=== PATIENT | female | born 2000 | race Caucasian/White ===

== ENCOUNTER 2024-06-15 09:42 | Inpatient (IN) ==
[2024-06-15 10:15] LABS: Basophils # (auto) 0.04 K/uL (0.00-0.20); Basophils % (auto) 0.6 %; Eosinophils # (auto) 0.16 K/uL (0.00-0.50); Eosinophils % (auto) 2.4 %; Hematocrit (blood only) 50.1 % (37.0-47.0); Hemoglobin 16.4 g/dl (12.0-16.0); Immature Granulocytes # (auto) 0.01 K/uL (0.01-0.20); Immature Granulocytes % (auto) 0.2 %; Lymphocytes # (auto) 1.72 K/uL (1.20-3.40); Lymphocytes % (auto) 25.9 %; Mean Corpuscular Hemoglobin 28.4 pg (25.0-34.0); Mean Corpuscular Hgb Conc 32.7 g/dL (32.0-36.0); Mean Corpuscular Volume 86.8 fL (80.0-100.0); Mean Platelet Volume 9.7 fL (9.4-12.4); Monocytes # (auto) 0.62 K/uL (0.11-0.59); Monocytes % (auto) 9.4 %; Neutrophils # (auto) 4.08 K/uL (1.40-6.50); Neutrophils % (auto) 61.5 %; Platelet Count 234 K/uL (130-400); RDW Coefficient of Variation 13.1 % (11.5-14.5); RDW Standard Deviation 41.9 fL (36.4-46.3); Red Blood Count 5.77 M/uL (4.20-5.40); White Blood Count 6.63 K/ul (4.8-10.8)
[2024-06-15 10:33] LABS: Acetaminophen < 3 ug/ml (10-30); Albumin Globulin Ratio 2.2 (0.9-2); Albumin Level 4.9 gm/dl (3.4-5.0); BUN Creatinine Ratio 12.5 (10-20); Bilirubin,Total 0.8 mg/dl (0.2-1.0); Calcium 9.7 mg/dl (8.6-10.3); Creatinine Clr Calc Pharmacy 89.5 ml/min; Globulin 2.2 gm/dl (2.5-4.0); Potassium 3.8 mmol/L (3.5-5.1); Salicylate < 3.0 mg/dl (3.0-30); Total Protein 7.1 gm/dl (6.0-8.3)
[2024-06-15 10:36] LABS: Pregnancy Test, Serum Negative (Negative)
[2024-06-15 10:47] LABS: Thyroid Stimulating Hormone 2.603 uIu/ml (0.300-4.500)
[2024-06-15 11:48] LABS: Appearance Urine Clear (Clear); Bacteria Urine Automated None Seen (None Seen); Bilirubin Urine Negative (Negative); Blood Urine Negative (Negative); Cast Urine Automated 0-2 /lpf (0-2); Color Urine Yellow; Epithelial Cell Urine Auto 0-2 /hpf (0-2); Glucose Urine UA Negative (Negative); Ketones Urine Negative (Negative); Leukocyte Esterase Urine Trace (Negative); Nitrite Urine Negative (Negative); Protein Urine Negative (Negative); RBC Urine Automated 0-2 /hpf (0-2); Specific Gravity Urine 1.006 (1.000-1.030); Urobilinogen Urine Negative (Negative); WBC Urine Automated 0-5 /hpf (0-5)
[2024-06-15 12:02] LABS: Amphetamines+Metham, Urine Neg (Neg); Barbiturates, Urine Neg (Neg); Benzodiazepine, Urine Neg (Neg); Cocaine, Urine Neg (Neg); Fentanyl, Urine Neg (Neg); MDMA (Ecstacy), Urine Neg (Neg); Marijuana, Urine Neg (Neg); Methadone, Urine Neg (Neg); Opiate, Urine Neg (Neg); Phencyclidine, Urine Neg (Neg)
--- NOTE | 2024-06-15 12:29 | Emergency Department Note ---
Impression & Plan Depression with suicidal ideation, Stress at home ED Provider Note NAME: PERLA MOSLEY AGE: 23 SEX: F : 2000 ARRIVES VIA: [employer] INFORMANT: Patient, ED PROVIDER(S): Michelle Auguste MD CHIEF COMPLAINT: 302 warrant HPI: This is a 23-year-old transgender male presenting for mental-health evaluation. Patient is currently on a 302 warrant. Appears the patient's roommates are concerned about him as previously he came downstairs to get an angry outburst, hit his head against a wall. He then also had text messages which show that he was having passive SI and states that he would kill himself in front of his partner. Patient self does verbalize going through some chest situations in the past few weeks. He currently denies any active SI however. If needing any psychiatric care, he would want outpatient treatment not inpatient. Occasional alcohol use otherwise no other drugs. ROS: See above HPI for pertinent positives & negatives. A total of 10 systems reviewed and were otherwise negative. PAST MEDICAL HISTORY: See Below PAST SURGICAL HISTORY: See Below FAMILY HISTORY: See Below SOCIAL HISTORY: See Below HOME MEDICATIONS: See Below ALLERGIES: See Below VITALS: See Below PHYSICAL EXAMINATION: General: resting comfortably in no acute distress Head: Normocephalic and atraumatic Eyes: Normal inspection, extraocular muscles intact Ear, nose, throat: Normal external exam Neck: Normal range of motion Respiratory: speaking in full sentences, symmetric chest rise, no respiratory distress Cardiovascular: Regular rate/rhythm Extremities: moves all extremities Neuro: The patient awake and alert, appropriately conversive, symmetric faces, no focal deficits Psych: Withdrawn, linear thought process, flat affect MEDICAL DECISION MAKING: This is a 23-year-old transgender male presents provide health evaluation. Based on review to warrant, there are descriptions of self-harm behavior including hitting his head against the wall as well as screenshots of messages stating passive SI as well as active SI intent. Based on these findings, to have concern the patient will require inpatient evaluation. -Will do screening psychiatric workup. -Bloodwork is reviewed showing no significant leukocytosis, anemia, electrolyte or creatinine abnormality -Urinalysis is negative. The patient is medically clear for psychiatric intervention. -Patient is only resistant to inpatient admission however based on findings, patient is comfortable at this time with voluntary admission instead of 302. -Patient accepted to 3s psych floor here. 201 signed. Differential diagnosis: SI, depression, psychosis Diagnostics interpreted by me: ECG: None Cardiac Monitoring: An order was placed for continuous cardiac monitoring. The monitor shows a rate of 83 with sinus rhythm. Past Med/Surg History Problem List (Updated 06/15/24 @ 14:29 by Michelle Auguste MD) Stress at home (Acute) Depression with suicidal ideation (Acute) No known health problems (Chronic 12/27/11) Social History Smoking Status: Former smoker Preferred Language: Luxembourgish Feels Safe at Home: Yes Gender Identity: Male Allergies Allergies Allergy/AdvReac Type Severity Reaction Status Date / Time red meat Allergy Unknown Uncoded 06/15/24 11:49 Home Meds Home Medications Medication Instructions Recorded Confirmed testosterone 2 pump topical DAILY 11/27/23 06/15/24 buspirone 5 mg tablet 5 mg PO DAILY 06/15/24 06/15/24 sertraline 100 mg tablet (Zoloft) 200 mg PO DAILY 06/15/24 06/15/24 Results & Data (ED) Vital Signs Vital Signs - 24 hr 06/15/24 09:53 06/15/24 10:05 06/15/24 12:16 Temperature 36.6 C 36.6 C Temperature Source Oral Oral Pulse Rate 82 Pulse Rate [Right Finger] 82 83 Pulse Rhythm Regular Pulse Rhythm [Right Finger] Regular Pulse Strength Normal Pulse Strength [Right Finger] Normal Respiratory Rate 17 17 16 Respiratory Effort / Characteristics Non-Labored Spontaneous Non-Labored Spontaneous Non-Labored Spontaneous Respiratory Depth Normal Normal Respiratory Pattern Regular Regular Blood Pressure 133/89 Blood Pressure [Left Arm] 133/89 125/75 Blood Pressure Mean 103 Blood Pressure Mean [Left Arm] 103 91 Blood Pressure Position Sitting Blood Pressure Position [Left Arm] Sitting Pulse Oximetry 98 98 100 Oxygen Delivery Method Room Air Room Air Room Air Sepsis Recent Fever Within 48 Hours No Sepsis New/Unexplained Change in Mental Status No Sepsis Action Taken by Nursing No Action Required Laboratory Data 06/15/24 10:00 06/15/24 10:00 Lab Results 06/15/24 06/15/24 06/15/24 Range/Units 10:00 10:17 11:31 WBC 6.63 (4.8-10.8) K/ul RBC 5.77 H (4.20-5.40) M/uL Hgb 16.4 H (12.0-16.0) g/dl Hct 50.1 H (37.0-47.0) % MCV 86.8 (80.0-100.0) fL MCH 28.4 (25.0-34.0) pg MCHC 32.7 (32.0-36.0) g/dL RDW Std Deviation 41.9 (36.4-46.3) fL RDW Coeff of Ev 13.1 (11.5-14.5) % Plt Count 234 (130-400) K/uL MPV 9.7 (9.4-12.4) fL Immature Gran % (Auto) 0.2 % Neut % (Auto) 61.5 % Lymph % (Auto) 25.9 % [place] % (Auto) 9.4 % Eos % (Auto) 2.4 % Baso % (Auto) 0.6 % Neut # (Auto) 4.08 (1.40-6.50) K/uL Lymph # (Auto) 1.72 (1.20-3.40) K/uL [place] # (Auto) 0.62 H (0.11-0.59) K/uL Eos # (Auto) 0.16 (0.00-0.50) K/uL Baso # (Auto) 0.04 (0.00-0.20) K/uL Immature Gran # (Auto) 0.01 (0.01-0.20) K/uL Sodium 139 (136-145) mmol/L Potassium 3.8 (3.5-5.1) mmol/L Chloride 105 (98-107) mmol/L Carbon Dioxide 28 (21-32) mmol/L Anion Gap 6 (3-11) BUN 10 (6-23) mg/dl Creatinine 0.80 (0.6-1.2) mg/dl Est Cr Clr Drug Dosing 89.5 ml/min eGFR 107.44 BUN/Creatinine Ratio 12.5 (10-20) Glucose 93 (70-99(Fasting)) mg/dl Calcium 9.7 (8.6-10.3) mg/dl Total Bilirubin 0.8 (0.2-1.0) mg/dl AST 18 (13-39) U/L ALT 10 (7-52) U/L Alkaline Phosphatase 46 (34-104) U/L Total Protein 7.1 (6.0-8.3) gm/dl Albumin 4.9 (3.4-5.0) gm/dl Globulin 2.2 L (2.5-4.0) gm/dl Albumin/Globulin Ratio 2.2 H (0.9-2) TSH 2.603 (0.300-4.500) uIu/ml HCG, Qual Negative (Negative) Urine Color Yellow Urine Appearance Clear (Clear) Urine pH 7.0 (4.5-7.5) Ur Specific [place] 1.006 (1.000-1.030) Urine Protein Negative (Negative) Urine Glucose (UA) Negative (Negative) Urine Ketones Negative (Negative) Urine Blood Negative (Negative) Urine Nitrite Negative (Negative) Urine Bilirubin Negative (Negative) Urine Urobilinogen Negative (Negative) Ur Leukocyte Esterase Trace H (Negative) Urine WBC (Auto) 0-5 (0-5) /hpf Urine RBC (Auto) 0-2 (0-2) /hpf U Hyaline Cast (Auto) 0-2 (0-2) /lpf U Epithel Cells (Auto) 0-2 (0-2) /hpf Urine Bacteria (Auto) None Seen (None Seen) Salicylates < 3.0 L (3.0-30) mg/dl Urine Opiates Screen Neg (Neg) Ur Methadone, Qual Neg (Neg) Urine Fentanyl Screen Neg (Neg) Acetaminophen < 3 L (10-30) ug/ml Urine Barbiturates Neg (Neg) Ur Phencyclidine (PCP) Neg (Neg) U Amphetamin/Meth Scrn Neg (Neg) MDMA (Ecstasy) Screen Neg (Neg) U Benzodiazepines Scrn Neg (Neg) Ur Cocaine Metabolite Neg (Neg) U Marijuana (THC) Screen Neg (Neg) Ethyl Alcohol mg/dL < 10.0 (<10.0) mg/dl SARS-CoV-2, RNA, NAAT NEGATIVE (NEGATIVE) Discharge Plan Visit Data Chief Complaint: Mental Health Evaluation Stated Complaint: [facility] ED Provider: Michelle Auguste Discharge Problem: Depression with suicidal ideation, Stress at home Patient Disposition: Admitted As Inpatient Discharge Instructions Interventions: ED Discharge Assessment Last Done: 06/15/24 13:50
[2024-06-15] MEDS ORDERED: SODIUM CHLORIDE 0.65% NA SOLN 45 ML (OCEAN) PRN (13:24)
[2024-06-15] MEDS ORDERED: BISMUTH SUBSALICYLATE 262 MG CHEW PO PRN (13:24)
[2024-06-15] MEDS ORDERED: ACETAMINOPHEN 325 MG TAB PO PRN (13:24)
[2024-06-15] MEDS ORDERED: MAGNESIUM HYDROXIDE SUSP 30 ML UDC PO PRN (13:24)
[2024-06-15] MEDS ORDERED: ALUMINUM/MAGNESIUM SUSP 30 ML UDC PO PRN (13:24)
[2024-06-15] MEDS ORDERED: hydrOXYzine HCl 25 MG TAB PO PRN ×2 (13:24)
[2024-06-15] MEDS ORDERED: NON-FORMULARY PATIENT'S OWN MED SCH (14:15)
[2024-06-15] MEDS: busPIRone 5 MG TAB PO SCH (14:46)
[2024-06-15] MEDS: SERTRALINE HCL 100 MG TABLET PO SCH (14:46)
[2024-06-15] MEDS: INFLUENZA VACC TS2024-25(6m+)/PF (IIV3) 0.5mL Syr IM ONE (16:01)
--- NOTE | 2024-06-16 08:59 | History & Physical ---
Date of Service June 16, 2024 Impression / Recommendations Impression DAKOTA MOSLEY is a 23-year-old man and [employer] senior who currently lives off-campus with roommates, has a history of self-harm, depression, anxiety and was admitted on 06/15/24 13:24 on a 201 voluntary commitment for self-harming behaviors, behavioral dysregulation and collateral reporting statements of SI. Diagnostically consistent with unspecified depression with differential including major depressive disorder vs exacerbation of mood symptoms and self- harm and SI in setting of suspected borderline personality disorder in context of recent breakup and conflict with roommates. Also meets criteria for NESHA and gender dysphoria. Discussed medication treatment options in detail. Discussed risks, benefits and alternatives. He wants to continue with sertraline and buspar, prefers not to increase dose of buspar or add any medications to help with depression or sleep at this time. He is interested in doing DBT as this was very helpful in the past. Reviewed side effects including but not limited to: GI, ALVARADO, sexual side effects, and counseled on black box warning of potential for emergence of or increased SI and need to let staff know should this occur or should they feel unsafe. Also discussed importance of seeking emergency care following discharge if this side effect occurs in the future with sertraline and dizziness with Buspar. MNPR-transgender Overall I spent a total of 75 minutes for this admission including review of chart records, review of labwork, direct evaluation of the patient, counseling the patient, ordering medication, risk assessment, discussion with the psychiatric liason RN and documentation in the electronic health record. (1) Depression with suicidal ideation: (2) Generalized anxiety disorder with panic attacks: (3) Gender dysphoria: Plan 06/16/2024: The patient was admitted to the [facility] ([facility] mental health unit) on q15 min checks (behavioral with suicide precautions) for safety. The patient w ill participate in group, recreational, and milieu therapies and will be offered additional individual and family sessions as clinically appropriate. -Continue sertraline 200mg daily and Buspar 5mg daily -Discussed option for IOP with DBT such as [facility] which he will consider vs individual weekly therapy -Provided Gisele BPD screening tool Inventory Assets Strengths: supportive relationships, willing to get treatment Needs: safety and stabilization, medication adjustment, additional coping skills, increased outpatient services Suicide Risk Level Suicide Risk Level: Moderate (q15 min suicide checks) (behavioral dysregulation, recent breakup, depression with hopelessness and reported statements of SI to roommates but denies current SI and feels safe in the hospital and able to ask for help) Risk Factors Assessment Male: Yes : Yes Do You Have Access To A Gun?: No Health Problems: No Mental Health Diagnoses: Yes Substance Use Disorders: No Previous Attempt: No Family History of Suicide: Yes Previous Psychiatric Hospitalization: Yes Hopelessness: Yes Protective Factors Assessment Employed: Yes ([employer]) Supportive Family: Yes Good Rapport with Provider: Yes Psychiatric History Identifying Data DAKOTA MOSLEY is a 23-year-old man and [employer] senior who currently lives off-campus with roommates, has a history of self-harm, depression, anxiety and was admitted on 06/15/24 13:24 on a 201 voluntary commitment for self-harming behaviors, behavioral dysregulation and collateral reporting statements of SI. Chief Complaint "It was me being annoyed and upset at people". History of Present Illness He presents for psychiatric admission for worsening depression and roommates reporting he made statements of SI in the context of multiple psychosocial stressors including argument with roommates and romantic breakup in early April. He denies making any suicidal statements but agrees he became anger and dysregulated including throwing items in his apartment and self-harm via head banging and biting himself. He reports that his ex-girlfriend had warned his roommates that he might be at higher risk for suicide following their breakup in early April and so he wonders if this played a role in their concern for his safety. He reports being more isolative after the breakup due to being depressed but thinks his roommates took this personally. Two nights ago Dakota got frustrated with a friend online and left a discord server software engineer and then his roommate, who is also in the server software engineer, wondered if Dakota needed more support but also started to message the group grievances and frustration he had about Dakota not cleaning up enough or paying for groceries to the online discPostabon group. This roommate also alleged that Dakota was making inappropriate jokes or sexual comments which Dakota feels is inaccurate. The next night his roommates held a libertarian late into the night and he got angry and threw things and yelled after they wouldn't end the libertarian. He denies making any suicidal statements or homicidal statements in the context of this. The 302 petition referenced concerns from peers that he was texting suicidal statements. In reviewing the text messages referenced in the 302 petition he recalls feeling more suicidal after his girlfriend broke up with him but states these text exchanges occurred in the weeks after the breakup. He endorses depressive symptoms including anhedonia (not wanting to play video games), decreased motivation for self-care, self-guilt, helplessness, hopelessness, variable energy, decreased appetite, and decreased sleep with hard to fall asleep and "sleeping too much", concentration has been stable. SI has been occurring since about age 14, typically occurs a few times per year. He also endorses symptoms of anxiety including generalized worries, easily overwhelmed and panic attacks (typically one or two every few months). Self-harm occurs about once every five months via bitting self. He finds this helps to release anger. Anger seems to be the most difficult emotion to manage and often presents as getting into arguments with other people. He is currently prescribed any psychiatric medications: sertraline 200mg daily (has been on this for multiple years and same dose for ~3 years), Buspar 5mg daily (2 years). Psychiatric ROS notable for no current nor history of symptoms of tanvir, psychosis. History of self-harm and history of restriction, history of possible PTSD-denies current symptoms. He states borderline personality disorder has never been mentioned or diagnosed in the past but when asked this he reports "I think I have it". Past Psychiatric History Previous Psych History: hx restricting Current Psychiatric Diagnosis: Depression and anxiety, gender dysphoria Outpatient Services: [facility] no current therapist, saw a therapist in early Apr 2024 through [employer] hx of DBT IOP in summer at [facility] Previous Psych Admissions: [facility] 2015 Do You Have Access To A Gun?: No History of Previous Suicide Attempt: No Past Medication Trials: hx Vistaril but stopped after anxiety improved Home Medications Medication Instructions Recorded Confirmed Type testosterone 2 pump topical DAILY 11/27/23 06/15/24 History buspirone 5 mg tablet 5 mg PO DAILY 06/15/24 06/15/24 History sertraline 100 mg tablet (Zoloft) 200 mg PO DAILY 06/15/24 06/15/24 History Family History Family History of: Depression, Other-List under Comment (mother with likely BPD ) and Suicide Completion (two maternal uncles, maternal second cousin ) Alcohol History Hx of Alcohol Use Over the Past 12 Months: Yes (social) AUDIT Total Score: 0 Smoking Use Have You Smoked or Used Tobacco Products in the Last 30 Days: No Smoking Status: Former smoker Substance History Hx of Prescription Med Misuse Over the Past 12 Months: No Hx of Over the Counter Med Misuse Over the Past 12 Months: No Hx of Inhalent Misuse Over the Past 12 Months: No Hx of Organic Substance Use Over the Past 12 Months: No Hx of Illegal Substances/Street Drug Use Over Past 12 Months: No Problems as a Result of Past Substance Use: None Identified past cannabis use with psychotic symptoms which emerged, none in two years Personal History Living Arrangements: Apartment Highest Grade Completed: College (Sr [employer] lingu[employer]) 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) Beliefs That Will Affect Care: None Hx Traumatic Life Events: Yes Patient History Social History Smoking Status: Former smoker Preferred Language: Namibian Communication Ability: Effective Denture Laboratory Technician Required: No Beliefs That Will Affect Care: None Feels Safe at Home: Yes Gender Identity: Transgender Male Assistive Devices: None Review of Systems Review of Systems: All systems reviewed & are unremarkable except as noted in HPI & below Physical Exam Psychiatric: Orientation: alert and oriented x 3 Apperance: appropriately dressed and appropriately groomed Eye Contact: good eye contact Motor Behavior: no abnormal motor movements Speech: normal rate/rhythm/volume of speech Affect: + constricted affect Mood: + depressed mood and + anxious mood Thought Process: goal directed thought process Thought Content: reality based without delusions Suicidal Thoughts: denies suicidal thoughts, denies suicidal plan and denies suicidal intent Homicidal Thoughts: denies homicidal thoughts Hallucinations: no auditory hallucinations and no visual hallucinations Cognition: recent memory grossly intact, remote memory grossly intact, attention grossly intact and language grossly intact Estimated Intelligence: consistent with education level Insight: + fair insight Judgment: + limited judgement Vital Signs (Past 24 Hours): Last Vital Signs Temp 36.6 C 06/16/24 06:41 Pulse 66 06/16/24 06:41 Resp 16 06/16/24 06:41 BP 100/65 06/16/24 06:41 Pulse Ox 100 06/15/24 12:16 O2 Del Method Room Air 06/15/24 12:16 Exam Statement: A physical exam was performed in the ED by Dr. Auguste for the purposes of medical clearance. I accept that physical as correct and adequate for the purposes of the inpatient physical exam. Results & Data ([facility]) Laboratory Results Laboratory Results - last 24 hr 06/15/24 06/15/24 06/15/24 10:00 10:17 11:31 WBC 6.63 RBC 5.77 H Hgb 16.4 H Hct 50.1 H MCV 86.8 MCH 28.4 MCHC 32.7 RDW Std Deviation 41.9 RDW Coeff of Ev 13.1 Plt Count 234 MPV 9.7 Immature Gran % (Auto) 0.2 Neut % (Auto) 61.5 Lymph % (Auto) 25.9 [place] % (Auto) 9.4 Eos % (Auto) 2.4 Baso % (Auto) 0.6 Neut # (Auto) 4.08 Lymph # (Auto) 1.72 [place] # (Auto) 0.62 H Eos # (Auto) 0.16 Baso # (Auto) 0.04 Immature Gran # (Auto) 0.01 Sodium 139 Potassium 3.8 Chloride 105 Carbon Dioxide 28 Anion Gap 6 BUN 10 Creatinine 0.80 Est Cr Clr Drug Dosing 89.5 eGFR 107.44 BUN/Creatinine Ratio 12.5 Glucose 93 Calcium 9.7 Total Bilirubin 0.8 AST 18 ALT 10 Alkaline Phosphatase 46 Total Protein 7.1 Albumin 4.9 Globulin 2.2 L Albumin/Globulin Ratio 2.2 H TSH 2.603 HCG, Qual Negative Urine Color Yellow Urine Appearance Clear Urine pH 7.0 Ur Specific [place] 1.006 Urine Protein Negative Urine Glucose (UA) Negative Urine Ketones Negative Urine Blood Negative Urine Nitrite Negative Urine Bilirubin Negative Urine Urobilinogen Negative Ur Leukocyte Esterase Trace H Urine WBC (Auto) 0-5 Urine RBC (Auto) 0-2 U Hyaline Cast (Auto) 0-2 U Epithel Cells (Auto) 0-2 Urine Bacteria (Auto) None Seen Salicylates < 3.0 L Urine Opiates Screen Neg Ur Methadone, Qual Neg Urine Fentanyl Screen Neg Acetaminophen < 3 L Urine Barbiturates Neg Ur Phencyclidine (PCP) Neg U Amphetamin/Meth Scrn Neg MDMA (Ecstasy) Screen Neg U Benzodiazepines Scrn Neg Ur Cocaine Metabolite Neg U Marijuana (THC) Screen Neg Ethyl Alcohol mg/dL < 10.0 SARS-CoV-2, RNA, NAAT NEGATIVE Current Inpatient Medications Current Inpatient Medications: Current Inpatient Medications Acetaminophen (Acetaminophen 325 Mg Tab) 650 mg PO Q4H PRN PRN Reason: Headache or Minor Fever Stop: 07/15/24 13:23 Al Hydrox/Mg Hydrox/Simethicone (Aluminum/Magnesium Susp 30 Ml Udc) 30 ml PO Q4H PRN PRN Reason: GI Upset Stop: 07/15/24 13:23 Bismuth Subsalicylate (Bismuth Subsalicylate 262 Mg Chew) 2 tab PO Q30M PRN PRN Reason: Loose Stool/Diarrhea Stop: 07/15/24 13:23 Buspirone HCl (Buspirone 5 Mg Tab) 5 mg PO DAILY [facility] Stop: 07/15/24 14:14 Last Admin: 06/15/24 14:46 Dose: 5 mg Hydroxyzine HCl (Hydroxyzine Hcl 25 Mg Tab) 50 mg PO HSZ PRN PRN Reason: Insomnia Stop: 07/15/24 13:23 Hydroxyzine HCl (Hydroxyzine Hcl 25 Mg Tab) 25 mg PO Q4H PRN PRN Reason: Anxiety Stop: 07/15/24 13:23 Magnesium Hydroxide (Magnesium Hydroxide Susp 30 Ml Udc) 30 ml PO DAILY PRN PRN Reason: Constipation Stop: 07/15/24 13:23 Miscellaneous (Testoserone Gel: Order Awaiting Action) 1 each N/A QS [facility] Stop: 07/15/24 15:59 Last Admin: 06/15/24 23:29 Dose: Not Given Sertraline HCl (Sertraline Hcl 100 Mg Tablet) 200 mg PO QAM ROCIO Stop: 07/15/24 14:14 Last Admin: 06/15/24 14:46 Dose: 200 mg Sodium Chloride (Sodium Chloride 0.65% Na Soln 45 Ml ([place])) 1 - 2 sprays NA PRN PRN PRN Reason: Nasal Dryness/Congestion Stop: 07/15/24 13:23
[2024-06-16] MEDS: TESTOSTERONE SCH (18:17)
--- NOTE | 2024-06-17 09:03 | Psychiatric Progress Note ---
Date of Service June 17, 2024 Impression / Recommendations Impression PERLA MOSLEY is a 23-year-old man and [employer] senior who currently lives off-campus with roommates, has a history of self-harm, depression, anxiety and was admitted on 06/15/24 13:24 on a 201 voluntary commitment for self-harming behaviors, behavioral dysregulation and collateral reporting statements of SI. Diagnostically consistent with unspecified depression with differential including major depressive disorder vs exacerbation of mood symptoms and self- harm and SI in setting of suspected borderline personality disorder in context of recent breakup and conflict with roommates. Also meets criteria for NESHA and gender dysphoria. A: Mood improving, Sunny screen consistent with BPD. Agreeable to trying outpatient IOP for CBT/DBT. Declines need to make any medication changes. MNPR-transgender Overall, I spent a total of 25 minutes on this case including meeting with the patient, reviewing the chart, nursing report, multidisciplinary team meeting, orders, and documentation. (1) Depression with suicidal ideation: (2) Borderline personality disorder: (3) Generalized anxiety disorder with panic attacks: (4) Gender dysphoria: Plan 06/17/2024: Continue current medications and tx plan 06/16/2024: The patient was admitted to the [facility] ([facility] inpatient mental health unit) on q15 min checks (behavioral with suicide precautions) for safety. The patient will participate in group, recreational, and milieu therapies and will be offered additional individual and family sessions as clinically appropriate. -Continue sertraline 200mg daily and Buspar 5mg daily -Discussed option for IOP with DBT such as [facility] which he will consider vs individual weekly therapy -Provided Sunny BPD screening tool Inventory Assets Strengths: supportive relationships, willing to get treatment Needs: safety and stabilization, medication adjustment, additional coping skills, increased outpatient services Suicide Risk Level Suicide Risk Level: Moderate (q15 min suicide checks) (behavioral dysregulation, recent breakup, depression with hopelessness and reported statements of SI to roommates but denies current SI, mood improving, and feels safe in the hospital and able to ask for help) Risk Factors Assessment Male: Yes : Yes Do You Have Access To A Gun?: No Health Problems: No Mental Health Diagnoses: Yes Substance Use Disorders: No Previous Attempt: No Family History of Suicide: Yes Previous Psychiatric Hospitalization: Yes Hopelessness: Yes Protective Factors Assessment Employed: Yes ([employer]) Supportive Family: Yes Good Rapport with Provider: Yes Interval History Identifying Information PERLA MOSLEY is a 23-year-old man and [employer] senior who currently lives off-campus with roommates, has a history of self-harm, depression, anxiety and was admitted on 06/15/24 13:24 on a 201 voluntary commitment for self-harming behaviors, behavioral dysregulation and collateral reporting statements of SI. Chief Complaint "Good". Review of Systems Sleep Information Total Hours of Sleep: 4.5 Sleep Comments: Offered PRN Vistaril before bed, declined; slept into the morning Meal Information Percent Meal Consumed - Lunch: 100 Percent Meal Consumed - Dinner: 100 Subjective Subjective Patient was seen & assessed and interval progress reviewed with nursing and social work. Attending some groups. Today reports mood is improving and stable. No medication issues. Agreeable to outpatient IOP. Planning for support meeting, working on safety plan. Reviewed Sunny BPD Questionnaire consistent with BPD diagnosis. Physical Exam Psychiatric Orientation: alert and oriented x 3 Apperance: appropriately dressed and appropriately groomed Eye Contact: good eye contact Motor Behavior: no abnormal motor movements Speech: normal rate/rhythm/volume of speech Affect: + constricted affect Mood: + depressed mood and + anxious mood Thought Process: goal directed thought process Thought Content: reality based without delusions Suicidal Thoughts: denies suicidal thoughts, denies suicidal plan and denies suicidal intent Homicidal Thoughts: denies homicidal thoughts Hallucinations: no auditory hallucinations and no visual hallucinations Cognition: recent memory grossly intact, remote memory grossly intact, attention grossly intact and language grossly intact Estimated Intelligence: consistent with education level Insight: + fair insight Judgment: + limited judgement Vital Signs (Past 24 Hours) Last Vital Signs Temp 36.4 C L 06/17/24 06:37 Pulse 69 06/17/24 06:38 Resp 16 06/17/24 06:37 BP 108/70 06/17/24 06:38 Pulse Ox 100 06/15/24 12:16 O2 Del Method Room Air 06/15/24 12:16 Results & Data ([facility]) Current Inpatient Medications Current Inpatient Medications: Current Inpatient Medications Acetaminophen (Acetaminophen 325 Mg Tab) 650 mg PO Q4H PRN PRN Reason: Headache or Minor Fever Stop: 07/15/24 13:23 Al Hydrox/Mg Hydrox/Simethicone (Aluminum/Magnesium Susp 30 Ml Udc) 30 ml PO Q4H PRN PRN Reason: GI Upset Stop: 07/15/24 13:23 Bismuth Subsalicylate (Bismuth Subsalicylate 262 Mg Chew) 2 tab PO Q30M PRN PRN Reason: Loose Stool/Diarrhea Stop: 07/15/24 13:23 Buspirone HCl (Buspirone 5 Mg Tab) 5 mg PO DAILY ROCIO Stop: 07/15/24 14:14 Last Admin: 06/16/24 11:29 Dose: 5 mg Hydroxyzine HCl (Hydroxyzine Hcl 25 Mg Tab) 50 mg PO HSZ PRN PRN Reason: Insomnia Stop: 07/15/24 13:23 Hydroxyzine HCl (Hydroxyzine Hcl 25 Mg Tab) 25 mg PO Q4H PRN PRN Reason: Anxiety Stop: 07/15/24 13:23 Magnesium Hydroxide (Magnesium Hydroxide Susp 30 Ml Udc) 30 ml PO DAILY PRN PRN Reason: Constipation Stop: 07/15/24 13:23 Miscellaneous (Testoserone Gel: Order Awaiting Action) 1 each N/A QS ROCIO Stop: 07/15/24 15:59 Last Admin: 06/17/24 01:00 Dose: Not Given Miscellaneous (*Testosterone Gel*Order Awaiting Action) 1 each N/A QS ROCIO Stop: 07/16/24 15:59 Last Admin: 06/17/24 01:00 Dose: Not Given Sertraline HCl (Sertraline Hcl 100 Mg Tablet) 200 mg PO QAM ROCIO Stop: 07/15/24 14:14 Last Admin: 06/16/24 11:29 Dose: 200 mg Sodium Chloride (Sodium Chloride 0.65% Na Soln 45 Ml ([place])) 1 - 2 sprays NA PRN PRN PRN Reason: Nasal Dryness/Congestion Stop: 07/15/24 13:23 Mental Health & Subst Abuse Tx Psychiatrist Name of Psychiatrist: Megha Negro Psychiatrist's Date Of Appointment With Psychiatric Provider: 07/01/2024 Time of Appointment with Psychiatrist: 1PM Psychiatric Appointment Comment: Will be seeing Didier Britton for this appt only. Will resume abel Camargo after Therapist Name of Therapist: [email or web address] Therapist's
--- NOTE | 2024-06-18 09:09 | Psychiatric Progress Note ---
Date of Service June 18, 2024 Impression / Recommendations Impression PERLA MOSLEY is a 23-year-old man and [employer] senior who currently lives off-campus with roommates, has a history of self-harm, depression, anxiety and was admitted on 06/15/24 13:24 on a 201 voluntary commitment for self-harming behaviors, behavioral dysregulation and collateral reporting statements of SI. Diagnostically consistent with unspecified depression with differential including major depressive disorder vs exacerbation of mood symptoms and self- harm and SI in setting of suspected borderline personality disorder in context of recent breakup and conflict with roommates. Also meets criteria for NESHA and gender dysphoria. A: Mood continues to improve, still with some insomnia but seems this is consistent with his typical pattern of staying up late and sleeping in. No aggressive or dysregulated behaviors. No medication side effects, remains agreeable with plan for outpatient IOP, support meeting tomorrow. MNPR-transgender Overall, I spent a total of 25 minutes on this case including meeting with the patient, reviewing the chart, nursing report, multidisciplinary team meeting, orders, and documentation. (1) Depression with suicidal ideation: (2) Borderline personality disorder: (3) Generalized anxiety disorder with panic attacks: (4) Gender dysphoria: Plan 06/18/2024: Continue current medications and tx plan 06/17/2024: Continue current medications and tx plan 06/16/2024: The patient was admitted to the [facility] ([facility] mental health unit) on q15 min checks (behavioral with suicide precautions) for safety. The patient will participate in group, recreational, and milieu therapies and will be offered additional individual and family sessions as clinically appropriate. -Continue sertraline 200mg daily and Buspar 5mg daily -Discussed option for IOP with DBT such as [facility] which he will consider vs individual weekly therapy -Provided Gisele BPD screening tool Inventory Assets Strengths: supportive relationships, willing to get treatment Needs: safety and stabilization, medication adjustment, additional coping skills, increased outpatient services Suicide Risk Level Suicide Risk Level: Moderate (q15 min suicide checks) (behavioral dysregulation, recent breakup, depression with reported statements of SI to roommates prior to admission but mood improving, hopeful, denies current SI, and feels safe in the hospital and able to ask for help) Risk Factors Assessment Male: Yes : Yes Do You Have Access To A Gun?: No Health Problems: No Mental Health Diagnoses: Yes Substance Use Disorders: No Previous Attempt: No Family History of Suicide: Yes Previous Psychiatric Hospitalization: Yes Hopelessness: No Protective Factors Assessment Employed: Yes ([employer]) Supportive Family: Yes Good Rapport with Provider: Yes Interval History Identifying Information PERLA MOSLEY is a 23-year-old man and [employer] senior who currently lives off-campus with roommates, has a history of self-harm, depression, anxiety and was admitted on 06/15/24 13:24 on a 201 voluntary commitment for self-harming behaviors, behavioral dysregulation and collateral reporting statements of SI. Chief Complaint "Good". Review of Systems Sleep Information Total Hours of Sleep: 4 Sleep Comments: Meal Information Percent Meal Consumed - Breakfast: 50 Percent Meal Consumed - Lunch: 100 Percent Meal Consumed - Dinner: 100 Subjective Subjective Patient was seen & assessed and interval progress reviewed with treatment team. Rated mood as "6" and "midway". Struggled to fall asleep, slept about 4 hours. Today reports his mood is "good", feels a little tired but not excessively so. He feels he usually stays up late and sleeps in so doesn't feel his sleep was that bad describes as "once I was in bed I slept pretty well". Discussed option for prn Vistaril should he desire this or other sleep medication options, he declines at this time. Denies SI. Physical Exam Psychiatric Orientation: alert and oriented x 3 Apperance: appropriately dressed and appropriately groomed Eye Contact: good eye contact Motor Behavior: no abnormal motor movements Speech: normal rate/rhythm/volume of speech Affect: euthymic affect Mood: + anxious mood; no depressed mood Thought Process: goal directed thought process Thought Content: reality based without delusions Suicidal Thoughts: denies suicidal thoughts, denies suicidal plan and denies suicidal intent Homicidal Thoughts: denies homicidal thoughts Hallucinations: no auditory hallucinations and no visual hallucinations Cognition: recent memory grossly intact, remote memory grossly intact, attention grossly intact and language grossly intact Estimated Intelligence: consistent with education level Insight: + fair insight Judgment: + fair judgement Vital Signs (Past 24 Hours) Last Vital Signs Temp 36.1 C L 06/18/24 06:00 Pulse 78 06/18/24 06:19 Resp 16 06/18/24 06:00 BP 110/70 06/18/24 06:19 Pulse Ox 100 06/15/24 12:16 O2 Del Method Room Air 06/15/24 12:16 Results & Data ([facility]) Current Inpatient Medications Current Inpatient Medications: Current Inpatient Medications Acetaminophen (Acetaminophen 325 Mg Tab) 650 mg PO Q4H PRN PRN Reason: Headache or Minor Fever Stop: 07/15/24 13:23 Al Hydrox/Mg Hydrox/Simethicone (Aluminum/Magnesium Susp 30 Ml Udc) 30 ml PO Q4H PRN PRN Reason: GI Upset Stop: 07/15/24 13:23 Bismuth Subsalicylate (Bismuth Subsalicylate 262 Mg Chew) 2 tab PO Q30M PRN PRN Reason: Loose Stool/Diarrhea Stop: 07/15/24 13:23 Buspirone HCl (Buspirone 5 Mg Tab) 5 mg PO DAILY ROCIO Stop: 07/15/24 14:14 Last Admin: 06/17/24 09:55 Dose: 5 mg Hydroxyzine HCl (Hydroxyzine Hcl 25 Mg Tab) 50 mg PO HSZ PRN PRN Reason: Insomnia Stop: 07/15/24 13:23 Hydroxyzine HCl (Hydroxyzine Hcl 25 Mg Tab) 25 mg PO Q4H PRN PRN Reason: Anxiety Stop: 07/15/24 13:23 Magnesium Hydroxide (Magnesium Hydroxide Susp 30 Ml Udc) 30 ml PO DAILY PRN PRN Reason: Constipation Stop: 07/15/24 13:23 Miscellaneous (Testoserone Gel: Order Awaiting Action) 1 each N/A QS ROCIO Stop: 07/15/24 15:59 Last Admin: 06/17/24 17:11 Dose: Not Given Miscellaneous (*Testosterone Gel*Order Awaiting Action) 1 each N/A QS ROCIO Stop: 07/16/24 15:59 Last Admin: 06/17/24 17:11 Dose: Not Given Sertraline HCl (Sertraline Hcl 100 Mg Tablet) 200 mg PO QAM ROCIO Stop: 07/15/24 14:14 Last Admin: 06/17/24 09:55 Dose: 200 mg Sodium Chloride (Sodium Chloride 0.65% Na Soln 45 Ml ([place])) 1 - 2 sprays NA PRN PRN PRN Reason: Nasal Dryness/Congestion Stop: 07/15/24 13:23 Mental Health & Subst Abuse Tx Psychiatrist Name of Psychiatrist: Megha Negro Psychiatrist's Date Of Appointment With Psychiatric Provider: 07/01/2024 Time of Appointment with Psychiatrist: 1PM Psychiatric Appointment Comment: Will be seeing Didier Britton for this appt only. Will resume abel Camargo after Therapist Name of Therapist: [facility] Therapist's Date of Therapist Appointment: 06/23/24 Time of Therapist Appointment: 3PM
--- NOTE | 2024-06-19 08:46 | Discharge Summary ---
Date of Service June 19, 2024 History of Present Illness He presents for psychiatric admission for worsening depression and roommates reporting he made statements of SI in the context of multiple psychosocial stressors including argument with roommates and romantic breakup in early April. He denies making any suicidal statements but agrees he became anger and dysregulated including throwing items in his apartment and self-harm via head banging and biting himself. He reports that his ex-girlfriend had warned his roommates that he might be at higher risk for suicide following their breakup in early April and so he wonders if this played a role in their concern for his safety. He reports being more isolative after the breakup due to being depressed but thinks his roommates took this personally. Two nights ago Dakota got frustrated with a friend online and left a discord dining server and then his roommate, who is also in the dining server, wondered if Dakota needed more support but also started to message the group grievances and frustration he had about Dakota not cleaning up enough or paying for groceries to the online discord group. This roommate also alleged that Dakota was making inappropriate jokes or sexual comments which Dakota feels is inaccurate. The next night his roommates held a democrat late into the night and he got angry and threw things and yelled after they wouldn't end the democrat. He denies making any suicidal statements or homicidal statements in the context of this. The 302 petition referenced concerns from peers that he was texting suicidal statements. In reviewing the text messages referenced in the 302 petition he recalls feeling more suicidal after his girlfriend broke up with him but states these text exchanges occurred in the weeks after the breakup. He endorses depressive symptoms including anhedonia (not wanting to play video games), decreased motivation for self-care, self-guilt, helplessness, hopelessness, variable energy, decreased appetite, and decreased sleep with hard to fall asleep and "sleeping too much", concentration has been stable. SI has been occurring since about age 14, typically occurs a few times per year. He also endorses symptoms of anxiety including generalized worries, easily overwhelmed and panic attacks (typically one or two every few months). Self-harm occurs about once every five months via bitting self. He finds this helps to release anger. Anger seems to be the most difficult emotion to manage and often presents as getting into arguments with other people. He is currently prescribed any psychiatric medications: sertraline 200mg daily (has been on this for multiple years and same dose for ~3 years), Buspar 5mg daily (2 years). Psychiatric ROS notable for no current nor history of symptoms of tanvir, psychosis. History of self-harm and history of restriction, history of possible PTSD-denies current symptoms. He states borderline personality disorder has never been mentioned or diagnosed in the past but when asked this he reports "I think I have it". Physical Exam Vital Signs (Past 24 Hours) Last Vital Signs Temp 35.9 C L 06/19/24 06:00 Pulse 64 06/19/24 06:27 Resp 16 06/19/24 06:00 BP 110/70 06/19/24 06:27 Pulse Ox 100 06/15/24 12:16 O2 Del Method Room Air 06/15/24 12:16 Principal Diagnosis Unspecified Depressive Disorder Psychiatric Data See daily stay summary. In short, patient was engaged with the social/therapeutic milieu of the unit, safety was maintained and the patient was cooperative with care. There were no medication changes. A support session was held and safety plan was completed prior to discharge. He participated in safety planning and in discussions about ways to seek support and recognizing warning signs and utilizing coping skills. Reviewed ways to have his safety plan and contacts easily available should thoughts of SI re-emerge in the future. Reviewed importance of seeking emergency care should SI intensify, worsen or should they feel unsafe in the future which he agrees to do. 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 Day of Discharge Assessment Today the patient voices readiness for discharge. They note improvement in mood and anxiety. They deny thoughts of harm to self or others. Thoughts are organized and they are clinically improved from admission. There is no evidence of psychosis. They improved in the hospital with support. They agree to take medications as prescribed and keep follow-up appointments. At the time of the discharge they are deemed to be stable and appropriate for outpatient level of care. They are not deemed to be at imminent risk of harm to self or others. They are aware of emergency and crisis services. Knows to call 911 or go to nearest emergency care center if in a crisis which cannot be handled as an outpatient. Suicide risk assessment: Acute risk is low given improvement in mood and denial of SI, lack of access to lethal means, hopefulness and behavioral stability and future-oriented. Chronic risk is moderate given some non-modifiable risk factors: psychiatric co-morbid diagnoses, periods of impulsivity, hx self-harm, emotional reactivity, prior psychiatric hospitalization, cluster B personality disorder, childhood trauma, family history of by suicide but also with protective factors including employed, student, good social support, sense of responsibility to family and social supports, outpatient care in place, positive coping skills, positive problem solving, willingness to engage with treatment and self-observation. Counseled on ways to reduce acute and chronic risk including engaging with outpatient providers, using safety plan if needed, utilizing supports, taking medication, and using coping skills. Modifiable risk factors of behavioral dysregulation, emotional dysregulation, self-harm, depression and SI were addressed during hospitalization through development of new coping skills, support meeting, safety planning, and increased aftercare to focus on DBT skills. Discharge physical exam: See admission H&P, MSE per above and day of discharge summary. Overall, I spent a total of 35 minutes on this case including meeting with the patient, reviewing the chart, nursing report, multidisciplinary team meeting, discharge orders, anticipatory planning, safety planning, risk assessment and documentation. Transition of Care Transition Of Care Record: was reviewed with the patient Advance Directives Advance Directives Information Provided: Yes Advance Directives: No Mental Health Advance Directive: No Advance Directives on File: No Living Will: No Power of Licensed Aircraft Maintenance Engineer: No Advance Directives Reason:: Declines as Mental Health Visit. Suicide Risk Level Suicide Risk Level Comments: Acute risk is low given denial of SI, see above for further assessment. Risk Factors Assessment Male: Yes : Yes Do You Have Access To A Gun?: No Health Problems: No Mental Health Diagnoses: Yes Substance Use Disorders: No Previous Attempt: No Family History of Suicide: Yes Previous Psychiatric Hospitalization: Yes Hopelessness: No Protective Factors Assessment Employed: Yes ([employer]) Stable Relationships: Yes Supportive Family: Yes Good Rapport with Provider: Yes Discharge Data Lab Results 06/15/24 06/15/24 06/15/24 10:00 10:17 11:31 WBC 6.63 RBC 5.77 H Hgb 16.4 H Hct 50.1 H MCV 86.8 MCH 28.4 MCHC 32.7 RDW Std Deviation 41.9 RDW Coeff of Ev 13.1 Plt Count 234 MPV 9.7 Immature Gran % (Auto) 0.2 Neut % (Auto) 61.5 Lymph % (Auto) 25.9 [place] % (Auto) 9.4 Eos % (Auto) 2.4 Baso % (Auto) 0.6 Neut # (Auto) 4.08 Lymph # (Auto) 1.72 [place]more # (Auto) 0.62 H Eos # (Auto) 0.16 Baso # (Auto) 0.04 Immature Gran # (Auto) 0.01 Sodium 139 Potassium 3.8 Chloride 105 Carbon Dioxide 28 Anion Gap 6 BUN 10 Creatinine 0.80 Est Cr Clr Drug Dosing 89.5 eGFR 107.44 BUN/Creatinine Ratio 12.5 Glucose 93 Calcium 9.7 Total Bilirubin 0.8 AST 18 ALT 10 Alkaline Phosphatase 46 Total Protein 7.1 Albumin 4.9 Globulin 2.2 L Albumin/Globulin Ratio 2.2 H TSH 2.603 HCG, Qual Negative Urine Color Yellow Urine Appearance Clear Urine pH 7.0 Ur Specific [place] 1.006 Urine Protein Negative Urine Glucose (UA) Negative Urine Ketones Negative Urine Blood Negative Urine Nitrite Negative Urine Bilirubin Negative Urine Urobilinogen Negative Ur Leukocyte Esterase Trace H Urine WBC (Auto) 0-5 Urine RBC (Auto) 0-2 U Hyaline Cast (Auto) 0-2 U Epithel Cells (Auto) 0-2 Urine Bacteria (Auto) None Seen Salicylates < 3.0 L Urine Opiates Screen Neg Ur Methadone, Qual Neg Urine Fentanyl Screen Neg Acetaminophen < 3 L Urine Barbiturates Neg Ur Phencyclidine (PCP) Neg U Amphetamin/Meth Scrn Neg MDMA (Ecstasy) Screen Neg U Benzodiazepines Scrn Neg Ur Cocaine Metabolite Neg U Marijuana (THC) Screen Neg Ethyl Alcohol mg/dL < 10.0 SARS-CoV-2, RNA, NAAT NEGATIVE Hospital Course (1) Depression, unspecified: (2) Depression with suicidal ideation: (3) Borderline personality disorder: (4) Generalized anxiety disorder with panic attacks: (5) Gender dysphoria: Plan 06/19/2024: Mood improved, feels ready/safe and desires discharge 06/18/2024: Continue current medications and tx plan 06/17/2024: Continue current medications and tx plan 06/16/2024: The patient was admitted to the [facility] ([facility] unit) on q15 min checks (behavioral with suicide precautions) for safety. The patient will participate in group, recreational, and milieu therapies and will be offered additional individual and family sessions as clinically appropriate. -Continue sertraline 200mg daily and Buspar 5mg daily -Discussed option for IOP with DBT such as [facility] which he will consider vs individual weekly therapy -Provided Gisele BPD screening tool Mental Health & Subst Abuse Tx Psychiatrist Name of Psychiatrist: Megha Negro Psychiatrist's Date Of Appointment With Psychiatric Provider: 07/01/2024 Time of Appointment with Psychiatrist: 1PM Psychiatric Appointment Comment: Will be seeing Didier Britton for this appt only. Will resume abel Camargo after Therapist Name of Therapist: [facility] Date of Therapist Appointment: 06/23/24 Time of Therapist Appointment: 3PM Post Discharge Appointments Other #1: Name of Aftercare Appointment: [facility] - Student Care and Advocacy Post hospitalization meeting Phone Number of Aftercare Appointment: [phone] Date of Aftercare Appointment: 06/20/24 Time of Aftercare Appointment: 10AM Aftercare Appointment Comment: Zoom link will be sent to your [facility] email Contact Information Discharge Discharge Address: [address] [place] [address] Discharge Plan Discharge Items Patient Disposition: Home - Self-Care Reason For Visit: UNSPECIFIED DEPRESSIVE DISORDER Discharge Diagnosis: Unspecified Depressive Disorder Activity: Resume your previous activity Non-emergency contact: Primary Care Provider, Psychiatrist and Therapist Call non-emergency contact if: you have any medication questions and your symptoms worsen Follow-up/Referrals: [facility] [Primary Care Provider] - Diet: Regular Addtl Attending Provider Instructions: Optional mobile apps we discussed: -Suicide safety plan -Virtual Hope Box SPECIAL CARE INSTRUCTIONS: 1. Follow through with your scheduled aftercare appointments. If unable to keep an appointment, please call to reschedule. 2. Take your medication only as prescribed. Medication should not be changed or stopped without the approval of your doctor. In the event of worsening symptoms or concerns about side effects, contact your doctor immediately. 3. Utilize new healthy coping skills, anger management skills, and stress management skills learned during your hospitalization. Journal feelings and process them with a support person. Identify stressors or situations that may result in relapse, deterioration or inappropriate behaviors and develop a plan to deal with those issues. 4. If your coping skills are ineffective and you are in crisis, contact your outpatient providers for direction. If unable to reach your providers, please call the [facility] CRISIS LINE AT , go to the [facility] walk-in center at [address], [address], [place], or go to the closest Emergency Room. 5. Avoid alcohol and un-prescribed drugs. 6. You have been provided with the Mental Health Advance Directives Pamphlet for your review. 7. Your condition is stable for discharge to outpatient level of care, but recovery is an ongoing process. Ifthoughts to harm yourself or others return, follow the safety plan developed during your stay. Planning for a safe return home includes securing weapons. Our treatment team recommends weaponsbe removed from the home until your outpatient provider reassesses your progress. In rare cases where the items themselvescannot be removed, guns and ammunitionshould be secured separatelyand keys stored by a reliable personoutside of the home. If you were admitted on an involuntary commitment, the police or other legal authorities may be involved in this process. AFTERCARE APPOINTMENTS: * Please call your insurance company prior to your scheduled appointment to confirm your aftercare providers are covered. Take your insurance information to your appointments. WHO TO CALL AND WHEN: Medical Emergencies: For questions or emergencies related to your hospital stay, please contact the Inpatient Behavioral Health Unit at [phone]. A rehabilitator is on-call 18/12 for the Behavioral Health Unit for emergencies At any time you feel your situation is an emergency, you may also call 911 immediately. National Crisis Hotline: 606 Pending Studies at Discharge: No Stand-Alone Forms: My [facility] Medications and DC Order Prescriptions: Continued sertraline [Zoloft] 100 mg Tablet 200 mg PO DAILY buspirone 5 mg Tablet 5 mg PO DAILY testosterone 20.25 mg/1.25 gram (1.62 %) Gel In Metered-Dose Pump 2 pump TOPICAL DAILY Rx Instructions: apply 1 pump amount over max area of EACH upper arm and shoulder Discharge Orders: Discharge Order (Routine); Ordered 06/19/24 Ordered By: Karen Stark Admission Data Admit Date/Time: 06/15/24 13:24 Attending Provider: aKren Stark Admit Provider: Karen Stark Primary Care Provider: [facility] Other Interventions: Discharge Summary Assessment (RN) Last Done: 06/19/24 12:28 Coding Level of Care Code 08801 D/C day mgmt > 30 min Diagnoses Depression, unspecified F32.A Depression with suicidal ideation F32.A; R45.851 Borderline personality disorder F60.3 Generalized anxiety disorder with panic attacks F41.1; F41.0 Gender dysphoria F64.9
== END 2024-06-19 14:05 | disposition home or self-care (01) | DRG 881 ==
LOC: ED 09:42 → 3S 13:24